=== PATIENT | male | born 1995 | race Caucasian/White ===

== ENCOUNTER 2017-04-22 23:54 | Emergency (ER) | payer BC, OTHER ==
[~2017-04-22] VITALS: Ht 165.1 cm; Wt 84.7 kg
[2017-04-23] MEDS ORDERED: BACITRACIN ZINC OINT UDPKT TOP ONE (04:45)
[2017-04-23] MEDS ORDERED: TETANUS, DIPHTHERIA, PERTUSSIS VAC/PF 0.5ML (>7YR OLD) IM ONE (06:30)
[2017-04-23 06:59] VITALS: BP 118/70
== END 2017-04-23 07:05 | disposition home or self-care (01) ==
LOC: ER 23:54
DX: S01.01XA Laceration without foreign body of scalp, initial encounter (principal); S39.012A Strain of muscle, fascia and tendon of lower back, initial encounter; W01.190A Fall on same level from slipping, tripping and stumbling with subsequent striking against furniture, initial encounter; Y93.89 Activity, other specified; Y92.89 Other specified places as the place of occurrence of the external cause; Y99.8 Other external cause status
CPT/HCPCS: 72070; 90471; 90715; 99284; X7700; Z7610